=== PATIENT | female | born 1965 | race Caucasian/White ===

== ENCOUNTER 2018-06-03 20:05 | Inpatient (IN) | payer MEDICAID ==
[~2018-06-03] VITALS: Ht 160 cm; Wt 63.6 kg
[2018-06-03] MEDS ORDERED: SODIUM CHLORIDE 0.9% 1,000 ML IV ONE (21:04)
[2018-06-03] MEDS ORDERED: MECLIZINE 25MG TABLET PO ONE (21:15)
[2018-06-03] MEDS ORDERED: CLONIDINE 0.2MG TABLET PO ONE (21:15)
[2018-06-03] MEDS ORDERED: ONDANSETRON HCL 4MG/2ML INJ IV ONE (21:30)
[2018-06-03 21:31] LABS: BASOPHILS % 0.4 % (0.0-2.0); EOSINOPHILS % 0.7 % (0.0-5.0); HEMATOCRIT. 39.8 % (36.0-48.0); HEMOGLOBIN. 13.2 g/dL (12.0-16.0); MEAN CORPUSCULAR HEMOGLOBIN 29.4 pg (28.0-32.0); MEAN CORPUSCULAR VOLUME 88.8 fL (81.0-99.0); MEAN PLATELET VOLUME 8.4 fl (7.4-10.4); MONOCYTES % 4.6 % (2.0-8.0); NEUTROPHILS % 81.3 % (40.0-76.0); PLATELET 322 x1000/uL (130-400); RED BLOOD CELL COUNT 4.48 mill/uL (4.2-5.4); RED CELL DISTRIBUTION WIDTH 14.7 % (11.6-14.6)
[2018-06-03 21:33] LABS: PARTIAL THROMBOPLASTIN TIME 24.5 sec (23.4-31.0)
[2018-06-03 21:38] LABS: CHLORIDE 102 mEq/L (98-107)
[2018-06-03] MEDS ORDERED: ASPIRIN 325MG EC TABLET PO ONE (23:00)
[2018-06-03 23:04] LABS: CLARITY URINE CLEAR (CLEAR); COLOR URINE YELLOW (YELLOW); KETONES URINE NEGATIVE (NEGATIVE); LEUKOCYTE ESTERASE URINE NEGATIVE (NEGATIVE); NITRITE URINE NEGATIVE (NEGATIVE); OCCULT BLOOD URINE NEGATIVE (NEGATIVE); PH URINE 6.5 (4.5-8.0); PROTEIN URINE NEGATIVE (NEGATIVE); SPECIFIC GRAVITY URINE 1.005 (1.005-1.030); UROBILINOGEN URINE 0.2 E.U./dL (0.2-1.0)
[2018-06-03] MEDS ORDERED: ACETAMINOPHEN 325MG TABLET PO PRN (23:45)
[2018-06-03] MEDS ORDERED: DOCUSATE SODIUM 100MG CAPSULE PO PRN (23:45)
[2018-06-03] MEDS ORDERED: DIPHENHYDRAMINE 50MG/ML VIAL IV PRN (23:45)
[2018-06-03] MEDS ORDERED: HYDROCODONE/ACETAMINOPHEN 10/325MG TABLET PO PRN (23:45)
[2018-06-03] MEDS ORDERED: MAGNESIUM/ALUMINUM HYDROXIDE/SIMETHICONE 30ML UDC PO PRN (23:45)
[2018-06-03] MEDS ORDERED: IPRATROPIUM/ALBUTEROL 0.5-3(2.5)MG/3ML NEB INH PRN (23:45)
[2018-06-03] MEDS ORDERED: ONDANSETRON HCL 4MG/2ML INJ IV PRN (23:45)
[2018-06-03] MEDS ORDERED: NA PHOS,M-B/NA PHOS,DI-BA ENEMA 118ML PR PRN (23:45)
[2018-06-03] MEDS ORDERED: GUAIFENESIN 200MG/10ML SUGAR FREE UDC PO PRN (23:45)
[2018-06-03] MEDS ORDERED: HYDRALAZINE 20MG/ML VIAL IV PRN (23:45)
[2018-06-03] MEDS ORDERED: LORAZEPAM 0.5MG TABLET PO PRN (23:45)
[2018-06-03] MEDS ORDERED: HYDROMORPHONE HCL/PF 2MG/ML CPJ IV PRN (23:45)
[2018-06-03] MEDS ORDERED: CLONIDINE 0.1MG TABLET PO PRN (23:45)
[2018-06-04 05:57] LABS: CHLORIDE 109 mEq/L (98-107)
[2018-06-04 05:59] LABS: BASOPHILS % 0.6 % (0.0-2.0); EOSINOPHILS % 2.8 % (0.0-5.0); HEMATOCRIT. 34.5 % (36.0-48.0); HEMOGLOBIN. 11.2 g/dL (12.0-16.0); MEAN CORPUSCULAR HEMOGLOBIN 28.7 pg (28.0-32.0); MEAN CORPUSCULAR VOLUME 88.7 fL (81.0-99.0); NEUTROPHILS % 67.6 % (40.0-76.0); PLATELET 289 x1000/uL (130-400); RED BLOOD CELL COUNT 3.89 mill/uL (4.2-5.4); RED CELL DISTRIBUTION WIDTH 15.1 % (11.6-14.6)
[2018-06-04 06:05] LABS: CREATINE KINASE 44 IU/L (26-192)
[2018-06-04 06:08] LABS: CREATINE KINASE MB FRACTION 1.8 ng/mL (0.5-3.6)
[2018-06-04] MEDS: ASPIRIN 81MG EC TABLET PO SCH (09:00)
[2018-06-04 15:06] LABS: T4 FREE 0.83 ng/dL (0.76-1.46)
[2018-06-04] MEDS ORDERED: FLUOCINONIDE 0.05% CREAM 15GM TOP STA (16:42)
[2018-06-04] MEDS ORDERED: PREDNISONE 20MG TABLET PO ONE (16:45)
[2018-06-04] MEDS ORDERED: DIPHENHYDRAMINE 25MG CAPSULE PO ONE (16:45)
[2018-06-04] MEDS ORDERED: FLUOCINOLONE ACETONIDE 0.025% TOP NR (17:45)
[2018-06-04 18:45] VITALS: BP 156/64
[2018-06-04 20:00] VITALS: BP 155/74
[2018-06-04 20:15] LABS: CREATINE KINASE 50 IU/L (26-192)
[2018-06-04 20:17] LABS: CREATINE KINASE MB FRACTION 1.7 ng/mL (0.5-3.6)
[2018-06-04 20:30] VITALS: BP 155/74
[2018-06-04] MEDS: ENOXAPARIN 40MG/0.4ML SYR SUBCUT SCH (20:50)
[2018-06-04] MEDS: SODIUM CHLORIDE 0.9% INJ 3ML FLUSH IVF SCH (20:50)
[2018-06-04] MEDS ORDERED: FLUO15CR2 TP (22:11)
[2018-06-04] MEDS ORDERED: P20 MT (22:11)
[2018-06-04] MEDS ORDERED: LISI40TA4 MT (22:11)
[2018-06-05] VITALS (7 sets, daily range): BP systolic 131–176; BP diastolic 64–88
[2018-06-05] MEDS: SODIUM CHLORIDE 0.9% INJ 3ML FLUSH IVF SCH ×2 (06:20→14:04)
[2018-06-05] MEDS: PREDNISONE 20MG TABLET PO SCH ×3 (07:20→18:59)
[2018-06-05] MEDS: FLUOCINOLONE ACETONIDE 0.025% TOP SCH ×3 (09:00→17:59)
[2018-06-05] MEDS: ASPIRIN 81MG EC TABLET PO SCH ×2 (09:00→10:55)
[2018-06-05] MEDS: LISINOPRIL 40MG TABLET PO SCH ×2 (09:00→10:55)
[2018-06-05] MEDS: ENOXAPARIN 40MG/0.4ML SYR SUBCUT SCH (20:00)
[2018-06-05] MEDS ORDERED: LISI40TA4 MT (20:26)
== END 2018-06-05 22:09 | disposition home or self-care (01) | DRG 199 ==
LOC: ER 20:29 → 6WST 23:09 → ENRESERV 06-04 17:41
PROVIDERS: ADMIT Internal Medicine; ATTEND Internal Medicine
DX: I16.9 Hypertensive crisis, unspecified (principal); E11.9 Type 2 diabetes mellitus without complications; I10 Essential (primary) hypertension; H00.19 Chalazion unspecified eye, unspecified eyelid; L40.9 Psoriasis, unspecified; Z98.891 History of uterine scar from previous surgery; Z79.899 Other long term (current) drug therapy; Z91.19 Patient's noncompliance with other medical treatment and regimen
CPT/HCPCS: 36415; 71045; 80061; 82550; 82553; 83036; 83880; 84439; 84443; 84484; 85379; 93005; 93306; 99285; J1650; J7030; J7512; J8597